=== PATIENT | male | born 1945 | race Caucasian/White ===

== ENCOUNTER 2016-05-30 06:38 | Day surgery (SDC) | payer OTHER ==
[~2016-05-30] VITALS: Ht 180.3 cm; Wt 97.6 kg
[~2016-05-30 06:38] MED LIST: AMLODIPINE BESYL5 MG PO; ATENOLOL25 MG PO; COLCRYS0.6 MG PO; FENOFIBRATE160 MG PO; GLIPIZIDE5 MG PO; HYDROCHLOROTHIA25 MG PO; LIPITOR40 MG PO; LISINOPRIL10 MG PO; METFORMIN HCL500 MG PO; PIOGLITAZONE HC15 MG PO; ULORIC40 MG PO
[2016-05-30] MEDS ORDERED: PERCOCET1 TA1 PO (09:13)
[2016-05-30] MEDS ORDERED: COLACE100 MG PO (09:13)
--- NOTE | 2016-05-30 09:14 | Provider's Discharge Care Plan ---
Problem, Goal, Plan Problem List 1. S/P colonoscopy with polypectomy Goals: Screening Instructions: Follow up as directed, Take meds as directed, HIGH FIBER DIET 2. S/P EXTERNAL HEMORROIDECTOMY Goals: Improve disease control, Therapeutic intervention Instructions: Follow up as directed, Take meds as directed
--- NOTE | 2016-05-30 09:36 | OPERATIVE REPORT ---
DATE OF SURGERY: 05/30/2016 SURGEON: Lizzeth Limon III, MD HAND WRAPPER OPERATOR: None. PREOPERATIVE DIAGNOSES: 1. Screening colonoscopy 2. External hemorrhoids 3. History of polyps, asymptomatic POSTOPERATIVE DIAGNOSES: 1. Sigmoid diverticulosis 2. Sigmoid polyps 3. External hemorrhoids (redundant anal mucosa) PROCEDURES PERFORMED: 1. Colonoscopy with electrocautery snare polypectomy 2. External hemorrhoidectomy x2 ANESTHESIA: TIVA. INDICATIONS: The patient is a 71-year-old male scheduled for screening colonoscopy. Last colonoscopy 2012, and a tubular adenoma was noted at that time SURGICAL FINDINGS: Perianal redundancy at 2 and 3 o'clock position. SURGICAL TECHNIQUE: The patient was brought to the operating room and placed in the left lateral decubitus position, where he was administered TIVA and monitored closely by anesthesia. The redundant perianal tissue, i. e. external hemorrhoids, was identified. Digital rectal examination revealed no masses or stenosis. This was followed by the passage of a fiberoptic video flexible Olympus colonoscope which, without difficulty, negotiated to the cecum. The cecum was identified by anatomical landmarks and anterior abdominal wall ballottement. On withdrawing the scope, the aforementioned findings were noted. The 2 polyps in question were removed using electrocautery snare, retrieved and sent to pathology. The scope was withdrawn, retroflexed, good view of the rectal vault obtained. No other pathology identified. The scope was completely withdrawn. The patient tolerated that portion of the procedure well. With the patient in the left lateral decubitus position, still under TIVA, his buttocks were taped apart. The perianal and perineal region were prepped using Betadine and draped in a sterile fashion. The 2 areas of redundancy of the anal mucosa/external hemorrhoids were identified. Each was infiltrated using local anesthetic, each elliptically excised using electrocautery, handed off the field. The anoderm was approximated using 3 -0 Polysorb in a continuous suture. The patient tolerated the procedure well and was transferred to the recovery room in stable condition. There were no intraoperative or anesthetic complications.
[2016-05-30 10:22] VITALS: BP 103/62
== END 2016-05-30 10:40 | disposition home or self-care (01) ==
LOC: SCU SRH 06:38 → OR SRH 06:38 → SCU SRH 06:41 → OR SRH 08:15
PROVIDERS: Specialist
PROC: 0DBN8ZX Excision of Sigmoid Colon, Via Natural or Artificial Opening Endoscopic, Diagnostic (ICD-10-PCS; principal; 2016-05-30 08:15)
PROC: 0DBP8ZX Excision of Rectum, Via Natural or Artificial Opening Endoscopic, Diagnostic (ICD-10-PCS; principal; 2016-05-30 08:15)
PROC: 06BY0ZC Excision of Hemorrhoidal Plexus, Open Approach (ICD-10-PCS; principal; 2016-05-30 08:15)
DX: K64.8 Other hemorrhoids (principal); K64.4 Residual hemorrhoidal skin tags; Z12.11 Encounter for screening for malignant neoplasm of colon; D12.5 Benign neoplasm of sigmoid colon; D12.8 Benign neoplasm of rectum; K57.30 Diverticulosis of large intestine without perforation or abscess without bleeding; N18.3 Chronic kidney disease, stage 3 (moderate); E11.21 Type 2 diabetes mellitus with diabetic nephropathy; Z79.84 Long term (current) use of oral hypoglycemic drugs; I12.9 Hypertensive chronic kidney disease with stage 1 through stage 4 chronic kidney disease, or unspecified chronic kidney disease
CPT/HCPCS: 29229; 29240; 50004; 60001; 70002; 82900; 83526; 84038